=== PATIENT | female | born 1950 | race Caucasian/White ===

== ENCOUNTER → 2021-01-17 | Outpatient (CLI) | payer MEDICARE, OTHER ==
[~2021-01-17] MED LIST: ASPI-630 PO; ATORVASTATIN CA80 MG PO; CITA20TA9 PO; CYCL-331 PO; DULO60CA6 PO; HYDR-2765 PO; LEVO750T5 PO; OMEP40CA2 PO
[2021-01-17 15:21] LABS: ALBUMIN 3.8 g/dL (3.4-5.0); ALBUMIN/GLOBULIN RATIO 1.1 (1.0-1.7); CALCIUM 9.4 mg/dL (8.5-10.1); CREATININE 0.9 mg/dL (0.6-1.0); GFR 61.9; POTASSIUM 3.7 mmol/L (3.5-5.1); TOTAL BILIRUBIN 0.6 mg/dL (0.2-1.0); TOTAL PROTEIN 7.2 g/dL (6.4-8.2)
== END ==
LOC: LAB 14:06
PROVIDERS: ATTEND Internal Medicine Interventional Cardiology
DX: I10 Essential (primary) hypertension (principal); E78.2 Mixed hyperlipidemia
CPT/HCPCS: 36415; 80053; 80061

== ENCOUNTER 2021-03-19 09:13 | Emergency (ER) | payer MEDICARE, OTHER ==
[~2021-03-19] VITALS: Ht 165.1 cm; Wt 83.0 kg
[~2021-03-19 09:13] MED LIST changes: -CYCL-331 PO; +CYCL10TA19 PO; -DULO60CA6 PO; +DULO60CA7 PO; +EPINEPHrine SYRINGE 1 MG/10 ML SYRINGE ONE; +IV DEXTROSE 5% 250 ML BAG. IV ONE; +NOREPINEPHRINE BITARTRATE 4 MG/4 ML VIAL. IV ONE; +SODIUM BICARB ADULT 8.4% 50 MEQ/50 ML DISP.SYRIN. ONE
--- NOTE | 2021-03-19 09:52 | RAD ---
EXAMINATION: Chest radiograph. VIEWS: Single view COMPARISON: 12/17/2013 INDICATION:70 years, Female, code. FINDINGS: Borderline enlarged cardiomediastinal silhouette. Left worst than right, diffuse pulmonary infiltrate s. No pleural effusion or pneumothorax. No acute osseous process. IMPRESSION: Left worst than right, diffuse pulmonary infiltrates, most consistent with moderate to severe pulmona ry edema. Electronically signed by: Kain Hathaway MD (03/19/2021 9:50 AM) [id number]
--- NOTE | 2021-03-19 10:13 | PHYS DOC ---
Past History Past Medical History: High Cholesterol, Heart Disease, Hypertension, Hyperthyroid Past Surgical History: Other Smoking: Greater than 1 pack/day Alcohol Use: None Drug Use: None General Adult EDM: Chief Complaint: CPR/FULL ARREST HPI: HPI: 70-year-old female presents via EMS as a CODE BLUE. The entire history comes from EMS reports as the patient is unresponsive. The patient was reported to be well and talking to her ex- [id number] at 7:30 AM. He went to wake her up to get ready for work at 8:30 AM and she was unresponsive. He called EMS. When EMS arrived they found her heart rate to be 40 and she was not breathing. They placed an I-gel for supplemental breathing and paste the patient. This appeared to be effective though the patient remained unresponsive during transport. Prior to arrival in the emergency room they lost pulses and began CPR. 1 epinephrine was given prior to arrival. No medical history available at this time. Review of Systems: Review of Systems: Unable to perform due to unresponsive condition Allergies: Allergies: Allergies Coded Allergies Type Severity Reaction Last Updated Verified atropine Allergy Intermediate 12/17/13 Yes diphenoxylate Allergy Intermediate 12/17/13 Yes Physical Exam: PE: Constitutional: Well developed, well nourished, severe acute distress. [] HENT: Normocephalic, atraumatic, bilateral external ears normal, oropharynx m oist, no oral exudates, nose normal. [] Eyes: Pupils fixed and medium dilated, conjunctiva normal, no discharge. [] [] Cardiovascular: CPR being performed [] Lungs & Thorax: Coarse breath sounds bilaterally [] Abdomen: no masses, no pulsatile masses. [] Skin: Warm, dry, no erythema, no rash. [] Back: No obvious trauma. [] Extremities: No obvious trauma. I/O left tibia [] Neurologic: Unresponsive [] Psychologic: Unable to assess [] Current Patient Data: Labs: Laboratory Tests Test 03/19/21 09:15 POC Venous pH 7.24 (7.32-7.42) L POC Venous pCO2 49 mmHg (41-51) POC Venous pO2 34 mmHg (20-40) Venous Blood HCO3 22 mmol/L (24-28) L POC Venous O2 Saturation (Elijah) 60 % POC FiO2 100 EKG: EKG: Sinus rhythm, rate 96 leftward axis, no obvious ST elevation, ST depression in V5 V6. [] Radiology/Procedures: Radiology/Procedures: [] Heart Score: C/O Chest Pain: N/A Risk Factors: Risk Factors: DM, Current or recent (<one month) smoker, HTN, HLP, family history of CAD, obesity. Risk Scores: Score 0 - 3: 2.5% MACE over next 6 weeks - Discharge Home Score 4 - 6: 20.3% MACE over next 6 weeks - Admit for Clinical Observation Score 7 - 10: 72.7% MACE over next 6 weeks - Early Invasive Strategies Course & Med Decision Making: Course & Med Decision Making Pertinent Labs and Imaging studies reviewed. (See chart for details) When the patient arrived CPR was being performed. We changed patient over to our bed and found her to be in asystole. We continued CPR with multiple rounds of epinephrine and chest compressions. I intubated the patient with a 7-1/2 ET tube. He required a third attempt due to complication with the manual Ladd blade. Third attempt was performed with glide scope visualization. Oximeter had good color change. Bilateral breath sounds. Patient was also given 2 A of bicarb. At one of our rhythm checks we had a slow but distinct pulse. We gave an additional round of epinephrine and began to pace the patient. Once good capture was achieved, the patient had a blood pressure with a MAP of 50. We placed her on a norepinephrine drip which improved her blood pressure. The patient did not show signs of regaining consciousness. She did begin to have a heart rate above the pacing. We decreased the norepinephrine accordingly while maintaining a MAP pressure greater than 75. I spoke with Dr. Mg at [facility] and he has accepted the patient for transfer. She will go by ambulance. [] Dragon Disclaimer: Dragon Disclaimer: This electronic medical record was generated, in whole or in part, using a voice recognition dictation system. Departure Departure: Impression: Primary Impression: Cardiopulmonary arrest Additional Impression: Pulmonary edema Disposition: 02 SHORT TERM HOSPITAL Condition: CRITICAL Referrals: GILBERT MELO MD (PCP) MANDA ESPINOSA DO Mar 19, 2021 10:13
[2021-03-19] MEDS ORDERED: FUROSEMIDE 40 MG/4 ML VIAL ONE (10:15)
[2021-03-19] MEDS ORDERED: FUROSEMIDE 40 MG/4 ML VIAL IVP ONE (10:15)
[2021-03-19 10:33] LABS: CALCIUM 8.5 mg/dL (8.5-10.1); CREATININE 1.1 mg/dL (0.6-1.0); GFR 49.1; POTASSIUM 4.3 mmol/L (3.5-5.1)
[2021-03-19 10:39] LABS: ALBUMIN 2.9 g/dL (3.4-5.0); TOTAL BILIRUBIN 0.6 mg/dL (0.2-1.0); TOTAL PROTEIN 5.9 g/dL (6.4-8.2)
[2021-03-19 10:40] LABS: BASO # 0.1 x10^3/uL (0.0-0.2); BASO % 1 % (0-3); EOS # 0.1 x10^3/uL (0.0-0.7); EOS % 1 % (0-3); HEMATOCRIT 38.8 % (36.0-47.0); HEMOGLOBIN 12.6 g/dL (12.0-15.5); LYMPH # 6.5 x10^3/uL (1.0-4.8); LYMPH % 52 % (24-48); MEAN CORPUSCULAR HEMOGLOBIN 30 pg (25-35); MEAN CORPUSCULAR HGB CONC 33 g/dL (31-37); MEAN CORPUSCULAR VOLUME 94 fL (79-100); MONO # 0.7 x10^3/uL (0.0-1.1); MONO % 6 % (0-9); NEUT # 4.9 x10^3uL (1.8-7.7); NEUT % 40 % (31-73); PLATELET COUNT 137 x10^3/uL (140-400); RED BLOOD COUNT 4.15 x10^6/uL (3.50-5.40); RED CELL DISTRIBUTION WIDTH 14.2 % (11.5-14.5); WHITE BLOOD COUNT 12.4 x10^3/uL (4.0-11.0)
[2021-03-19 10:52] VITALS: BP 112/66
[2021-03-19 11:00] LABS: BGAS PH 7.38 (7.35-7.45)
--- NOTE | 2021-03-19 11:08 | EKG ---
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
--- NOTE | 2021-03-19 11:15 | EKG ---
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
[2021-03-19 12:04] LABS: BARBITURATES NEG (NEG); BENZODIAZEPINES NEG (NEG); CANNABINOIDS NEG (NEG); COCAINE NEG (NEG); METHADONE NEG (NEG); OPIATES POS (NEG); PHENCYCLIDINE NEG (NEG)
[2021-03-19 12:14] LABS: AMPHETAMINE/METHAMPHETAMINE NEG (NEG)
[2021-03-19 12:15] LABS: BILIRUBIN,URINE NEG (NEG); CLARITY,URINE CLEAR; COLOR,URINE YELLOW
[2021-03-19 12:16] LABS: BACTERIA,URINE MANY /HPF (0-FEW); GLUCOSE,URINE 100 mg/dL (NEG); NITRITE,URINE NEG (NEG); SQUAMOUS EPITHELIAL CELL,UR FEW /LPF; UROBILINOGEN,URINE 0.2 mg/dL (0.2 mg/dL); WBC,URINE 20-40 /HPF (0-4)
== END 2021-03-19 12:44 | disposition short-term general hospital (02) ==
LOC: ER 09:13
DX: I46.9 Cardiac arrest, cause unspecified (principal); J81.1 Chronic pulmonary edema; E78.5 Hyperlipidemia, unspecified; I10 Essential (primary) hypertension; Z87.891 Personal history of nicotine dependence; Z20.822 Contact with and (suspected) exposure to COVID-19
CPT/HCPCS: 36415; 36600; 71045; 80053; 80307; 81001; 82803; 82947; 84484; 85025; 87040; 87086; 87426; 93005; 96374; 99285; C9803; J0171; J1940; U0003; 94002